=== PATIENT | male | born 1975 | race Caucasian/White ===

== ENCOUNTER 2016-09-19 07:11 | Emergency (ER) | payer BC ==
[2016-09-19] MEDS ORDERED: Lidocaine 1% MPF* 2 ML VIAL INJ ONE (08:20)
[2016-09-19] MEDS ORDERED: Tetan/Diph/Pertus SYR(Tdap)* 0.5 ML SYR(BOOSTRIX) use SYR IM ONE (08:21)
--- NOTE | 2016-09-19 08:51 | RAD ---
HISTORY: Left ankle trauma, pain, swelling COMPARISONS: None VIEWS: 3, Frontal, lateral, and oblique views of the left ankle FINDINGS: BONE DENSITY: Normal. BONES: There is no displaced fracture. JOINTS: There is no arthropathy. ALIGNMENT: There is no dislocation. SOFT TISSUES: There is circumferential soft tissue swelling OTHER FINDINGS: None. IMPRESSION: SOFT TISSUE SWELLING. NO ACUTE OSSEOUS INJURY. IF SYMPTOMS PERSIST, RECOMMEND REPEAT IMAGING.
[2016-09-19 09:16] VITALS: BP 150/98
--- NOTE | 2016-09-19 11:24 | UC ---
Sergio Barone Benjamin, scribed for Debbie House DO on 09/19/16 at 0821 . Lower Extremity/Ankle HPI - HPI Summary HPI Summary: 41yo male presents with a facial laceration on the left cheek. Pt fell down stairs this morning when carrying heavy boxes around 0200. No head injury, dizziness, ringing in ears, n/v, fatigue PAIGE, or visual/mood changes. Pt also reports rolling his left ankle upon falling. Pt rates the ankle pain 6-7/10 scale and painful to bear weight. Unknown tetanus status. No significant PMHx or FHx. - History of Current Complaint Chief Complaint: UCLaceration Stated Complaint: FACE LACERATION Time Seen by Provider: 09/19/16 07:32 Hx Obtained From: Patient Onset/Duration: Sudden Onset, Lasting Hours, Still Present Severity Initially: Moderate Severity Currently: Moderate Pain Intensity: 7 Pain Scale Used: 0-10 Numeric Aggravating Factor(s): Ambulation Alleviating Factor(s): Rest Able to Bear Weight: No - left ankle pain - Allergies/Home Medications Allergies/Adverse Reactions: Allergies Allergy/AdvReac Type Severity Reaction Status Date / Time No Known Allergies Allergy Verified 09/19/16 07:26 Home Medications: Home Medications NK [No Home Medications Reported] 09/19/16 [History Confirmed 09/19/16] PMH/Surg Hx/FS Hx/Imm Hx Previously Healthy: Yes - Surgical History Surgical History: None - Family History Known Family History: Negative: Cardiac Disease, Hypertension, Diabetes - Social History Occupation: Employed Full-time Lives: With Family Alcohol Use: Daily Substance Use Type: None Smoking Status (MU): Light Every Day Tobacco Smoker Type: Cigarettes Amount Used/How Often: socially Have You Smoked in the Last Year: No Cessation Counseling: Patient Advised to Stop Review of Systems Constitutional: Negative Skin: Other - left facial laceration Eyes: Negative ENT: Negative Respiratory: Negative Cardiovascular: Negative Gastrointestinal: Negative Genitourinary: Negative Motor: Negative Neurovascular: Negative Musculoskeletal: Arthralgia - left ankle Neurological: Negative Psychological: Negative All Other Systems Reviewed And Are Negative: Yes Physical Exam Triage Information Reviewed: Yes Appearance: Well-Appearing, No Pain Distress, Well-Nourished Vital Signs: Initial Vital Signs Temp 99.3 F 09/19/16 07:23 Pulse 109 09/19/16 07:23 Resp 18 09/19/16 07:23 Pulse Ox 98 09/19/16 07:23 Vital Signs Reviewed: Yes Eyes: Positive: Conjunctiva Clear. Negative: Discharge ENT: Positive: Normal ENT inspection. Negative: Muffled/hoarse voice Neck exam: Normal Neck: Positive: Supple Respiratory: Positive: Lungs clear, Normal breath sounds, No respiratory distress, No accessory muscle use Cardiovascular: Positive: RRR, No Murmur Musculoskeletal: Positive: Strength Intact, ROM Limited @ - on left ankle due to pain, Other: - Lateral Medial Malleolus is significantly bruised and swollen on the ankle. tailor dome is swollen as well. Neurological: Positive: Alert, Muscle Tone Normal Psychological: Positive: Age Appropriate Behavior Skin Exam: Normal, Other - warm, dry, normal color Diagnostics - Radiology Ankle XR Xray Interpretation: No Acute Changes - IMPRESSION: SOFT TISSUE SWELLING. NO ACUTE OSSEOUS INJURY. IF SYMPTOMS PERSIST, RECOMMEND REPEAT IMAGING. IMPRESSION : SOFT TISSUE SWELLING. NO ACUTE OSSEOUS INJURY. IF SYMPTOMS PERSIST, RECOMMEND REPEAT IMAGING. Radiology Interpretation Completed By: Radiologist Lower Extremity Course/Dx - Differential Dx/Diagnosis Differential Diagnosis/HQI/PQRI: Contusion, Fracture (Closed), Sprain, Strain, Other - lac Provider Diagnoses: facial laceration repair, ankle sprain Discharge - Discharge Plan Condition: Stable Disposition: HOME Patient Education Materials: Facial Laceration (ED), Ankle Sprain (ED) Referrals: Zac Sandoval MD [Primary Care Provider] - () Additional Instructions: FOLLOW UP Return here for suture removal in 5 days. If you ankle is not significantly improved in 5-7 days, return for re- evaluation or see your pcp. YOU WOULD LIKELY BENEFIT FROM OSTEOPATHIC TREATMENT. WE RECOMMEND THAT YOU FIND AN OSTEOPATHIC PHYSICIAN IN YOUR AREA WHO FOCUSES EXCLUSIVELY ON OSTEOPATHIC MANIPULATIVE MEDICINE WITH EXPERTISE IN MYOFACIAL, LYMPHATIC, VISCERAL AND INTEROSSEOUS WORK The documentation as recorded by the Sergio martin Benjamin accurately reflects the service I personally performed and the decisions made by , Debbie House DO.
== END 2016-09-19 11:00 | disposition home or self-care (01) ==
LOC: UCEAST 07:11
DX: S01.412A Laceration without foreign body of left cheek and temporomandibular area, initial encounter (principal); S93.402A Sprain of unspecified ligament of left ankle, initial encounter; W10.9XXA Fall (on) (from) unspecified stairs and steps, initial encounter; Y93.9 Activity, unspecified; Y92.9 Unspecified place or not applicable; Z23 Encounter for immunization; F17.210 Nicotine dependence, cigarettes, uncomplicated
CPT/HCPCS: 12011; 90471; 90715; 99212; G0463

== ENCOUNTER 2016-09-24 14:21 | Emergency (ER) | payer BC ==
[2016-09-24 16:56] VITALS: BP 146/91
--- NOTE | 2016-09-24 17:35 | UC ---
Skin Complaint HPI - HPI Summary HPI Summary: Patient arrives for suture removal. Small 4cm laceration to the left cheek repaired 5 days go with 6-0 sutures. Denies numbness, tingling or redness around the area. He notes to continuing left ankle pain with ecchymosis and slight swelling. xray negative. He is encouraged to use an carolyn wrap for stability and ibuprofen for pain and swelling. Denies other pain. - History of Current Complaint Chief Complaint: UCLaceration Time Seen by Provider: 09/24/16 15:49 Stated Complaint: STITCHES REMOVAL Hx Obtained From: Patient Onset Severity: Mild Current Severity: None Pain Intensity: 0 Pain Scale Used: 0-10 Numeric Location: Discrete - left cheek Aggravating: Nothing Alleviating: Nothing Associated Signs & Symptoms: Positive: Negative Related History: Trauma - Allergy/Home Medications Allergies/Adverse Reactions: Allergies Allergy/AdvReac Type Severity Reaction Status Date / Time No Known Allergies Allergy Verified 09/24/16 15:36 Home Medications: Home Medications Ibuprofen [Advil] 800 mg PO Q6HR PRN 09/24/16 [History Confirmed 09/24/16] Review of Systems Constitutional: Negative Skin: Other - laceration Eyes: Negative Respiratory: Negative Cardiovascular: Negative Motor: Negative Neurovascular: Negative Musculoskeletal: Arthralgia, Myalgia Neurological: Negative Psychological: Negative All Other Systems Reviewed And Are Negative: Yes PMH/Surg Hx/FS Hx/Imm Hx Previously Healthy: Yes - Surgical History Surgical History: None - Family History Known Family History: Negative: Cardiac Disease, Hypertension, Diabetes - Social History Occupation: Employed Full-time Lives: With Family Alcohol Use: Weekly Substance Use Type: None Smoking Status (MU): Light Every Day Tobacco Smoker Type: Cigarettes Amount Used/How Often: socially Have You Smoked in the Last Year: No Physical Exam Triage Information Reviewed: Yes Appearance: Well-Appearing, No Pain Distress, Well-Nourished Vital Signs: Initial Vital Signs Temp 99.4 F 09/24/16 15:33 Pulse 101 09/24/16 15:33 Resp 18 09/24/16 15:33 BP 146/91 09/24/16 15:33 Pulse Ox 98 09/24/16 15:33 Vital Signs Reviewed: Yes Eye Exam: Normal Eyes: Positive: Conjunctiva Clear Neck exam: Normal Neck: Positive: Supple, No Lymphadenopathy Respiratory Exam: Normal Respiratory: Positive: Chest non-tender Cardiovascular Exam: Normal Musculoskeletal: Positive: Edema @ - LLE, Other: - pain on palpation of left lateral and medial ankle. Neurological Exam: Normal Neurological: Positive: Alert, Muscle Tone Normal Psychological Exam: Normal Psychological: Positive: Normal Response To Family Skin Exam: Normal Skin: Positive: Other - color changes over medial ankle Course/Dx - Course Course Of Treatment: 4 sutures removed. antibiotic ointment applied. carolyn wrap given for left ankle. patient ok for discharge. no signs of infection - Differential Diagnoses - Skin Complaint Differential Diagnoses: Other - suture removal, cellulitis, avulsion - Diagnoses Provider Diagnoses: suture removal Discharge - Discharge Plan Condition: Stable Disposition: HOME Patient Education Materials: Stitches Removal (ED) Referrals: Zac Sandoval MD [Primary Care Provider] -
== END 2016-09-24 17:05 | disposition home or self-care (01) ==
LOC: UCEAST 14:21
DX: Z48.02 Encounter for removal of sutures (principal); Z72.0 Tobacco use
CPT/HCPCS: 99211; G0463